=== PATIENT | male | born 1955 | race Caucasian/White ===

== ENCOUNTER → 2016-11-21 | Outpatient (CLI) | payer BC ==
[~2016-11-21] MED LIST: AMBCR125 PO; ATOR-22 PO; CMD5 PO
[2016-11-21 15:08] LABS: PROTHROMBIN TIME (PATIENT) 68.8 SECONDS (9.0-12.0)
[2016-11-21 16:40] LABS: ALKALINE PHOSPHATASE 67 U/L (45-117); ALT/SGPT 55 U/L (12-78); AST/SGOT 38 U/L (15-37); BLOOD UREA NITROGEN 19 mg/dl (7-18); BUN/CREATININE RATIO 15.8 (10-20); CALCIUM 8.3 mg/dl (8.5-10.1); CARBON DIOXIDE 23 mmol/L (21-32); CHLORIDE 108 mmol/L (98-107); GLUCOSE 105 mg/dl (70-99); HDL CHOLESTEROL 66 mg/dl; SODIUM 141 mmol/L (136-145)
[2016-11-21 16:41] LABS: CHOLESTEROL 195 mg/dl (0-200); LDL CHOLESTEROL CALCULATED 83 mg/dl; TRIGLYCERIDES 229 mg/dl (0-150); VERY LOW DENSITY LIPOPROT CALC 46 mg/dl
== END | disposition home or self-care (01) ==
LOC: C.LAB1850 13:29
PROVIDERS: ATTEND Internal Medicine Pulmonary Disease
DX: I26.99 Other pulmonary embolism without acute cor pulmonale (principal); D68.59 Other primary thrombophilia; E78.5 Hyperlipidemia, unspecified; N52.9 Male erectile dysfunction, unspecified; J45.909 Unspecified asthma, uncomplicated

== ENCOUNTER → 2016-11-26 | Outpatient (CLI) | payer BC ==
[2016-11-26 15:53] LABS: PROTHROMBIN TIME (PATIENT) 21.6 SECONDS (9.0-12.0)
== END | disposition home or self-care (01) ==
LOC: C.LAB1850 14:29
PROVIDERS: ATTEND Internal Medicine Pulmonary Disease
DX: I82.409 Acute embolism and thrombosis of unspecified deep veins of unspecified lower extremity (principal)

== ENCOUNTER → 2017-01-29 | Outpatient (CLI) | payer BC ==
[2017-01-29 12:14] LABS: BLOOD UREA NITROGEN 17 mg/dl (7-18); GLUCOSE 115 mg/dl (70-99)
[2017-01-29 12:15] LABS: ALT/SGPT 43 U/L (12-78); BUN/CREATININE RATIO 15.4 (10-20); CARBON DIOXIDE 22 mmol/L (21-32); CHLORIDE 109 mmol/L (98-107); CHOLESTEROL 186 mg/dl (0-200); POTASSIUM 3.9 mmol/L (3.5-5.1); SODIUM 139 mmol/L (136-145)
[2017-01-29 12:18] LABS: ALB/GLOB RATIO 0.9 (0.9-2); ALKALINE PHOSPHATASE 62 U/L (45-117); AST/SGOT 30 U/L (15-37); CHOLESTEROL/HDL RATIO 2.8; HDL CHOLESTEROL 66 mg/dl; LDL CHOLESTEROL CALCULATED 92 mg/dl; TRIGLYCERIDES 138 mg/dl (0-150); VERY LOW DENSITY LIPOPROT CALC 28 mg/dl
[2017-01-29 12:21] LABS: INR 1.2 (0.9-1.1); PROTHROMBIN TIME (PATIENT) 13.2 SECONDS (9.0-12.0)
== END | disposition home or self-care (01) ==
LOC: C.LAB1850 10:28
PROVIDERS: ATTEND Internal Medicine Pulmonary Disease
DX: J45.909 Unspecified asthma, uncomplicated (principal); R06.00 Dyspnea, unspecified; N52.9 Male erectile dysfunction, unspecified; E78.5 Hyperlipidemia, unspecified; D68.59 Other primary thrombophilia; H71.90 Unspecified cholesteatoma, unspecified ear

== ENCOUNTER → 2017-07-01 | Outpatient (CLI) | payer BC ==
--- NOTE | 2017-07-01 13:20 | DIAGNOSTIC IMAGING REPORT ---
CHEST 2 VIEWS ROUTINE CLINICAL HISTORY: Left anterior rib pain following injury. COMPARISON STUDY: Chest CT April 02, 2016. FINDINGS: There is no pneumothorax or pleural effusion. Note is made of an acute moderately displaced fracture of the posterior lateral left sixth rib which is displaced 4 mm. Cardiomediastinal silhouette is normal. Pulmonary vascularity is normal. IMPRESSION: Acute moderately displaced posterior left sixth rib fracture. No pneumothorax. Electronically signed by: William Quintana M.D. 07/01/2017 1:19 PM Dictated Date/Time: 07/01/2017 1:11 PM
--- NOTE | 2017-07-01 13:23 | DIAGNOSTIC IMAGING REPORT ---
L RIBS UNILATERAL MIN 2 VIEWS CLINICAL HISTORY: Left-sided rib pain following fall. COMPARISON STUDY: CT April 02, 2016. FINDINGS: Note is made of an acute moderately displaced posterior left sixth rib fracture. The fracture is displaced by 4 mm. No additional left-sided rib fractures are noted. There is no left pneumothorax. IMPRESSION: Acute moderately displaced posterior left sixth rib fracture. Electronically signed by: William Quintana M.D. 07/01/2017 1:21 PM Dictated Date/Time: 07/01/2017 1:20 PM
== END | disposition home or self-care (01) ==
LOC: C.RDSM 18:49
PROVIDERS: ATTEND Physical Medicine & Rehabilitation Sports Medicine
DX: R07.81 Pleurodynia (principal)